=== PATIENT | female | born 1970 | race Caucasian/White ===

== ENCOUNTER → 2020-07-05 10:45 | Outpatient (BNVA) | payer OTHER, SELFPAY | PROVIDERS: PCP Nurse Practitioner; Visit Provider Nurse Practitioner Family | DX: R60.0 Localized edema (principal) | CPT/HCPCS: 80048; 83880 ==

== ENCOUNTER 2020-08-19 06:52 | Outpatient (CLI) | payer OTHER, SELFPAY ==
--- NOTE | 2020-08-19 07:05 | ECG_ITS ---
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 Interpretive Statements NAME OF STUDY: LEXISCAN SESTAMIBI STRESS TEST INDICATION: Shortness of Breath PROCEDURE: At the baseline, the blood pressure was 152/99 mm Hg with a heart rate of 78 bpm. The electrocardiogram showed normal sinus rhythm, normal axis and normal EKG. ??? The Lexiscan was infused over a period of 20 seconds. A total of 0.4 milligrams of Lexiscan was infused. The stress phase was continued for a total of 5 minutes. Heart rate at the end of the stress phase was 81 bpm with a blood pressure of 142/99 mm Hg. The EKG at the peak infusion revealed sinus rhythm with no significant ST-T wave changes. The study was terminated due to protocol completion. ??? Sestamibi was injected 20 seconds after the Lexiscan infusion. ??? Blood pressure at the end of the recovery phase was 172/102 mm Hg with a heart rate of 78 beats per minute. ??? CONCLUSION: 1. No significant EKG changes with the LexiScan infusion. 2. No LexiScan induced chest pain or cardiac arrhythmia. 3. Normal blood pressure and heart rate response. 4. Sestamibi/sestamibi perfusion scan pending; see separate report. Electronically Signed On 08-23-2020 16:50:35 CDT by Letty Mendenhall M.D. [email or web address]
--- NOTE | 2020-08-19 07:06 | NMCV_ITS ---
NM lopez perf SPECT r/s* [id number] Stacey Mas Age: 49 Gender: F : 1970 Exam Date: 08/19/2020 08:25 Ordering Phys: Sally Quinones Technologist: ANTOINE Jordan Exam Location: [facility] Indications: SHORTNESS OF BREATH STRESS TEST Please see separate stress test report in [facility] for full findings IMAGE PROTOCOL Rest/Stress 1 Lexiscan Day Radiopharmaceutical Dose (mCi) Administration Site Administered by Rest: Tc-99m 9.1 IV ANTOINE Lujan Sestamibi Stress:Tc-99m 33.0 IV ANTOINE Jordan Sestamistephanie Rest: 19-Aug-2020 60 Discovery 630 Stress: 19-Aug-2020 30 Discovery 630 0.4mg Lexiscan. Images obtained in supine and prone position. SPECT RESULTS Technical Quality: Excellent Raw Data Analysis: Breast attenuation Image Corrections: No attenuation or motion correction applied Summed Stress Score: 6 Summed Rest Score: 5 Summed Difference Score: 2 PERFUSION FINDINGS There is a moderate sized, mostly fixed perfusion defect of the apical lateral wall with minimal reversibility. This likely represents prior infarct with small area of periinfarct ischemia. FUNCTIONAL RESULTS (calculated via Gated SPECT) Stress Image LV EF (%): 72 Stress EDV (mL):88 TID: 0.89 Stress ESV (mL):25 FUNCTIONAL FINDINGS: LV systolic function is normal IMPRESSIONS 1. 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 LV systolic function is normal Bernard Ohara MD (Electronically Signed) Final Date: 19 Aug 2020 16:28 S
[2020-08-19 07:26] VITALS: BMI 40.1
[2020-08-19] MEDS: regadenoson 0.4 Mg/5 ml Syringe IVP (10:00)
[2020-08-19 10:26] VITALS: BP 161/98; PULSE 78
== END 2020-08-19 06:53 | disposition home or self-care (01) ==
LOC: CDL 06:54
PROVIDERS: Visit Provider Nurse Practitioner Family
DX: R06.02 Shortness of breath (principal)
CPT/HCPCS: 78452; 93017; A9500; J2785